=== PATIENT | male | born 1995 | race Caucasian/White ===

== ENCOUNTER 2016-08-26 03:03 | Emergency (ER) | payer OTHER ==
[~2016-08-26] VITALS: Ht 175.3 cm; Wt 75.0 kg
[2016-08-26 03:06] VITALS: BP 153/58; TEMP 98.5
[2016-08-26] MEDS ORDERED: CRUTCHES MC (06:01)
[2016-08-26] MEDS ORDERED: NORCO 325 MG-7.1 TAB PO (06:09)
[2016-08-26 06:57] VITALS: PULSE 84
== END 2016-08-26 06:50 | disposition home or self-care (01) ==
LOC: COL.ER 03:03
DX: S82.64XA Nondisplaced fracture of lateral malleolus of right fibula, initial encounter for closed fracture (principal); W17.89XA Other fall from one level to another, initial encounter; Y92.34 Swimming pool (public) as the place of occurrence of the external cause; S90.31XA Contusion of right foot, initial encounter
CPT/HCPCS: J1170; J1885; J2405; J3010; J7030